=== PATIENT | male | born 1945 | race Hispanic/Latino ===

== ENCOUNTER 2019-02-25 12:24 | Emergency (ER) | payer OTHER, MEDICARE ==
[~2019-02-25 12:24] MED LIST: AEC81 PO; CHOL200074 PO; DEXL60CA3 PO; LISI30TA4 PO; PRAV20TA4 PO
[2019-02-25 13:25] LABS: BASOPHILS % (AUTO) 1.2 % (0.0-5.0); EOSINOPHILS % (AUTO) 1.5 % (0.0-8.0); HEMATOCRIT 43.3 % (42-54); LYMPHOCYTES % (AUTO) 20.1 % (21.0-51.0); MEAN CORPUSCULAR HEMOGLOBIN 32.2 pg (27.0-33.0); MEAN CORPUSCULAR HGB CONC 33.9 g/dL (32.0-36.0); MEAN CORPUSCULAR VOLUME 95.2 fL (79-99); MONOCYTES % (AUTO) 8.9 % (3.0-13.0); NEUTROPHILS % (AUTO) 68.3 % (40.0-77.0); PLATELET COUNT (AUTO) 189 K/uL (130-400); RED BLOOD CELL COUNT(AUTO) 4.55 MIL/uL (4.50-6.20); RED CELL DISTRIBUTION WIDTH 13.4 % (11.0-15.5); WHITE BLOOD COUNT (AUTO) 8.4 K/uL (4.8-10.8)
[2019-02-25 13:32] LABS: CREATININE 1.2 mg/dL (0.5-1.5); POTASSIUM 4.2 mmol/L (3.5-5.1)
[2019-02-25 13:35] LABS: INR 0.97 (0.85-1.15); PARTIAL THROMBOPLASTIN TIME 29.2 SEC (26.3-35.5); PROTHROMBIN TIME 10.2 SEC (9.6-11.6)
[2019-02-26] MEDS ORDERED: LISI40TA4 PO (10:00)
== END 2019-02-25 14:35 | disposition left against medical advice (07) ==
LOC: EDH 12:24
DX: I74.3 Embolism and thrombosis of arteries of the lower extremities (principal); I10 Essential (primary) hypertension; Z72.0 Tobacco use
CPT/HCPCS: 36415; 80048; 85025; 85610; 85730; 93005; 93925

== ENCOUNTER → 2019-04-22 | Outpatient (CLI) | payer OTHER, MEDICARE ==
[~2019-04-22] MED LIST changes: -CHOL200074 PO; -DEXL60CA3 PO; -LISI30TA4 PO; +LISI40TA4 PO; -PRAV20TA4 PO
== END | disposition home or self-care (01) ==
LOC: SHCH 07:51
PROVIDERS: ATTEND Internal Medicine Cardiovascular Disease
DX: I73.9 Peripheral vascular disease, unspecified (principal)
CPT/HCPCS: 93925

== ENCOUNTER 2019-08-12 08:18 | Emergency (ER) | payer OTHER, MEDICARE ==
[2019-08-12 08:38] LABS: BASOPHILS % (AUTO) 0.9 % (0.0-5.0); EOSINOPHILS % (AUTO) 1.2 % (0.0-8.0); HEMATOCRIT 42.5 % (42-54); LYMPHOCYTES % (AUTO) 25.6 % (21.0-51.0); MEAN CORPUSCULAR HEMOGLOBIN 30.3 pg (27.0-33.0); MEAN CORPUSCULAR HGB CONC 32.5 g/dL (32.0-36.0); MEAN CORPUSCULAR VOLUME 93.2 fL (79-99); MONOCYTES % (AUTO) 9.1 % (3.0-13.0); NEUTROPHILS % (AUTO) 62.3 % (40.0-77.0); PLATELET COUNT (AUTO) 203 K/uL (130-400); RED BLOOD CELL COUNT(AUTO) 4.56 MIL/uL (4.50-6.20); RED CELL DISTRIBUTION WIDTH 13.7 % (11.0-15.5); WHITE BLOOD COUNT (AUTO) 6.7 K/uL (4.8-10.8)
[2019-08-12 08:52] LABS: INR 1.02 (0.85-1.15); PARTIAL THROMBOPLASTIN TIME 26.7 SEC (26.3-35.5); PROTHROMBIN TIME 10.7 SEC (9.6-11.6)
[2019-08-12 09:33] LABS: B-TYPE NATRIURETIC PEPTIDE 8 pg/mL (0-100)
[2019-08-12 09:48] LABS: CREATININE 1.2 mg/dL (0.5-1.5); POTASSIUM 4.7 mmol/L (3.5-5.1)
[2019-08-12 09:53] LABS: BILIRUBIN,TOTAL 0.7 mg/dL (0.2-1.0); TOTAL PROTEIN, SERUM 7.7 g/dL (6.0-8.3)
[2019-08-12 10:35] LABS: APPEARANCE,URINE Clear (CLEAR); BILIRUBIN,URINE Negative (NEGATIVE); COLOR,URINE Yellow (YELLOW); GLUCOSE, URINE (UA) Negative (NEGATIVE); KETONES,URINE Negative (NEGATIVE); LEUKOCYTE ESTERASE ,URINE Negative (NEGATIVE); NITRATE,URINE Negative (NEGATIVE); OCCULT BLOOD,URINE Small (NEGATIVE); PH,URINE 5.5 (5.0-8.0); PROTEIN,URINE Negative (NEGATIVE); UROBILINOGEN,URINE 0.2 mg/dL (0.2-1.0)
[2019-08-12 10:55] LABS: BACTERIA,URINE Rare /HPF (None Seen); RBC,URINE 0-1 /HPF (0-1); SQUAMOUS EPITHELIAL CELL,UR Rare /HPF (0-2)
== END 2019-08-12 11:13 | disposition home or self-care (01) ==
LOC: EDH 08:18
DX: R55 Syncope and collapse (principal); I10 Essential (primary) hypertension; I82.409 Acute embolism and thrombosis of unspecified deep veins of unspecified lower extremity; Z98.890 Other specified postprocedural states; Z72.0 Tobacco use
CPT/HCPCS: 36415; 70450; 71045; 80053; 81001; 82550; 83880; 84484; 85025; 85610; 85730; 93005

== ENCOUNTER 2019-12-02 17:00 | Inpatient (IN) | payer OTHER, MEDICARE ==
[~2019-12-02] VITALS: Ht 165.1 cm; Wt 48.0 kg
[2019-12-02 17:26] LABS: BASOPHILS % (AUTO) 0.7 % (0.0-5.0); EOSINOPHILS % (AUTO) 1.3 % (0.0-8.0); HEMATOCRIT 38.3 % (42-54); LYMPHOCYTES % (AUTO) 22.3 % (21.0-51.0); MEAN CORPUSCULAR HEMOGLOBIN 31.1 pg (27.0-33.0); MEAN CORPUSCULAR HGB CONC 33.2 g/dL (32.0-36.0); MEAN CORPUSCULAR VOLUME 93.9 fL (79-99); MONOCYTES % (AUTO) 8.6 % (3.0-13.0); PLATELET COUNT (AUTO) 166 K/uL (130-400); RED BLOOD CELL COUNT(AUTO) 4.08 MIL/uL (4.50-6.20); RED CELL DISTRIBUTION WIDTH 13.9 % (11.0-15.5); WHITE BLOOD COUNT (AUTO) 9.4 K/uL (4.8-10.8)
[2019-12-02] MEDS ORDERED: ASPIRIN 81MG TAB.CHEW ONE (17:31)
[2019-12-02] MEDS ORDERED: HEPARIN SODIUM 5000UNIT/ML 1ML VIAL ONE (17:32)
[2019-12-02 17:36] LABS: CREATININE 1.3 mg/dL (0.5-1.5); POTASSIUM 4.6 mmol/L (3.5-5.1)
[2019-12-02 17:39] LABS: INR 0.96 (0.85-1.15); PARTIAL THROMBOPLASTIN TIME 26.3 SEC (26.3-35.5); PROTHROMBIN TIME 10.4 SEC (9.6-11.6)
[2019-12-02 17:41] LABS: ALBUMIN 3.6 g/dL (3.5-5.0); BILIRUBIN,TOTAL 0.2 mg/dL (0.2-1.0); TOTAL PROTEIN, SERUM 7.1 g/dL (6.0-8.3)
[2019-12-02] MEDS ORDERED: HEPARIN 25000 UNITS/250 ML D5W 250 ML IV ONE (17:41)
[2019-12-02 17:52] LABS: B-TYPE NATRIURETIC PEPTIDE 15 pg/mL (0-100)
[2019-12-02] MEDS ORDERED: NITROGLYCERIN 1GM/1 INCH PACKET TD ONE (19:25)
[2019-12-02 19:33] LABS: APPEARANCE,URINE Clear (CLEAR); BILIRUBIN,URINE Negative (NEGATIVE); COLOR,URINE Yellow (YELLOW); GLUCOSE, URINE (UA) Negative (NEGATIVE); KETONES,URINE Negative (NEGATIVE); LEUKOCYTE ESTERASE ,URINE Negative (NEGATIVE); NITRATE,URINE Negative (NEGATIVE); OCCULT BLOOD,URINE Small (NEGATIVE); PH,URINE 5.5 (5.0-8.0); PROTEIN,URINE Negative (NEGATIVE); UROBILINOGEN,URINE 0.2 mg/dL (0.2-1.0)
[2019-12-02 19:48] LABS: BACTERIA,URINE Few /HPF (None Seen); RBC,URINE None Seen /HPF (0-1)
[2019-12-02] MEDS ORDERED: HYDROMORPHONE 1 MG/1 ML AMP IVP PRN (20:30)
[2019-12-02 22:53] VITALS: BP 138/55
--- NOTE | 2019-12-02 22:55 | NUR ---
ADMISSION PT TRANSFERRED FORM ER INTO ROOM 307 VIA STRETCHER. AWAKE, ALERT AND VERBALLY RESPONSIVE, NO C/O PAIN OR DISCOMFORT AT THIS TIME. 20G PERIPHERAL IV CATHETER TO RIGHT AC INFUSING HEPARIN PER PROTOCOL, ORDER, DOSE, AND INFUSION RATE REVIEWED WITH BITA BLACKMON RN. NO BLEEDING OBSERVED AT THIS TIME. PT ORIENTED TO ROOM, CALL ARCEO WITHIN REACH, BED IN LOWEST POSITION. Addendum: 12/02/19 at 2335 by SALINAS CARBALLO RN Amended: Links added.
[2019-12-02 23:51] LABS: INR 0.99 (0.85-1.15); PROTHROMBIN TIME 10.7 SEC (9.6-11.6)
[2019-12-03] VITALS (12 sets, daily range): BP systolic 82–144; BP diastolic 51–84
[2019-12-03 00:13] LABS: PARTIAL THROMBOPLASTIN TIME 91.3 SEC (26.3-35.5)
[2019-12-03] MEDS: SODIUM CHLORIDE 0.9% 1000ML 1,000 ML IV SCH ×2 (00:22→16:34)
[2019-12-03 05:28] LABS: EOSINOPHILS % (AUTO) 2.2 % (0.0-8.0); HEMATOCRIT 36.9 % (42-54); LYMPHOCYTES % (AUTO) 24.7 % (21.0-51.0); MEAN CORPUSCULAR HEMOGLOBIN 31.5 pg (27.0-33.0); MEAN CORPUSCULAR HGB CONC 33.3 g/dL (32.0-36.0); MEAN CORPUSCULAR VOLUME 94.4 fL (79-99); NEUTROPHILS % (AUTO) 61.7 % (40.0-77.0); PLATELET COUNT (AUTO) 147 K/uL (130-400); RED BLOOD CELL COUNT(AUTO) 3.91 MIL/uL (4.50-6.20); WHITE BLOOD COUNT (AUTO) 9.3 K/uL (4.8-10.8)
[2019-12-03 05:49] LABS: INR 0.97 (0.85-1.15); PARTIAL THROMBOPLASTIN TIME 50.5 SEC (26.3-35.5); POTASSIUM 4.5 mmol/L (3.5-5.1); PROTHROMBIN TIME 10.5 SEC (9.6-11.6)
[2019-12-03] MEDS: ATORVASTATIN CALCIUM 40 MG TABLET PO SCH (09:18)
[2019-12-03] MEDS: ASPIRIN 81MG TAB.CHEW PO SCH (09:18)
--- NOTE | 2019-12-03 10:00 | NUR ---
DALTON Caruso, called states okay to feed pt 5minutes later he stated that there is a spot at [facility], he was told that patient did not eat but drank a cup coffee, he states okay they will pick him up later, and i will call to when to hold heparin.
--- NOTE | 2019-12-03 10:30 | NUR ---
[facility] by Whitney AGUILLON pt in no distress, aaox3.
[2019-12-03] MEDS ORDERED: HEPARIN SODIUM 1000UNIT/ML 10ML VIAL ONE (10:32)
[2019-12-03] MEDS ORDERED: NITROGLYCERIN 2 MG/VIAL VIAL IV ONE (10:32)
[2019-12-03] MEDS ORDERED: FENTANYL CITRATE PF 50 MCG/1 ML 2ML VIAL ONE (10:33)
[2019-12-03] MEDS ORDERED: MIDAZOLAM HCL 1 MG/ML 2ML VIAL ONE (10:33)
[2019-12-03] MEDS ORDERED: IODIXANOL 320 MG/ML 100 ML VIAL ONE (10:33)
[2019-12-03] MEDS ORDERED: LIDOCAINE HCL 2% 20ML ONE (10:33)
--- NOTE | 2019-12-03 11:06 | NUR ---
[facility] CM spoke to pt's brother Derick Akbar discussed dc plans. Pt is independent prior to admission, lives at home alone, brother lives close by. Denies any equipments/services. Feels safe to go back home, still drives occassionally, brother able to assist with transportation and needs as necessary. Pt goes to [facility] for meds. Dc plan to home once stable. CM to cont to follow up. Addendum: 12/03/19 at 1107 by TALON LION LVN CM Amended: Links added.
[2019-12-03] MEDS ORDERED: SODIUM CHLORIDE 0.9% 1000ML 1,000 ML IV SCH (12:51)
[2019-12-03] MEDS ORDERED: CLOPIDOGREL BISULFATE 300 MG TAB ONE (12:58)
[2019-12-03] MEDS ORDERED: HYDRALAZINE HCL 20 MG/ML VIAL IV PRN (13:00)
[2019-12-03] MEDS ORDERED: HYDRALAZINE HCL 20 MG/ML VIAL ONE (13:12)
--- NOTE | 2019-12-03 13:45 | NUR ---
received pt as transfer from refuse lab[facility]; bilaterial groins with sheat intact, no bruising, bleeding or edema noted; weak pedal pulse papable and grace. feet warm to touch; pt denies pain at this time, he is aaox3, i have oriented him to need to stay straight/flat till 7 pm this evening to prevent complications and he stated understanding. will cont to monitor.
[2019-12-03] MEDS ORDERED: ONDANSETRON HCL 4 MG/2 ML VIAL IVP PRN (16:00)
[2019-12-03] MEDS ORDERED: ONDANSETRON HCL 4 MG/2 ML VIAL ONE (16:05)
[2019-12-04 01:15] VITALS: BP 121/58
[2019-12-04 04:25] VITALS: BP 155/56
[2019-12-04 07:42] VITALS: BP 176/85
--- NOTE | 2019-12-04 08:00 | NUR ---
AM ASSESSMENT PT LAYING IN BED, HOB ELEVATED 30 DEGREES, WATCHING TV. A/O X 3. NO SOB. NO DISTRESS NOTED. DENIES CHEST PAIN OR DISCOMFORT. DENIES INCISIONAL PAIN. TELE: SR. DENIES N/V AND/OR DIARRHEA. BILATERAL GROIN DSG DRY & INTACT. NO BLEEDING, NO HEMATOMA NOTED. (+) BILATERAL WEAK PEDAL PULSES. BLE WARM TO TOUCH. UP W/ASSISTANCE. INSTRUCTED TO CALL FOR ASSISTANCE. CALL [facility] W/IN REACH.
[2019-12-04] MEDS: ATORVASTATIN CALCIUM 40 MG TABLET PO SCH (08:10)
[2019-12-04] MEDS: ASPIRIN 81MG TAB.CHEW PO SCH (08:12)
[2019-12-04] MEDS ORDERED: CLOPIDOGREL BISULFATE 75 MG TAB PO SCH (09:00)
[2019-12-04 11:43] VITALS: BP_SYST 119; BP_SYST 127; BP_DIAS 52; BP_DIAS 93
[2019-12-04 14:54] LABS: CREATININE 1.1 mg/dL (0.5-1.5); POTASSIUM 4.1 mmol/L (3.5-5.1)
[2019-12-04 15:37] VITALS: BP 125/63
[2019-12-04] MEDS ORDERED: LISINOPRIL 5 MG TABLET PO SCH (21:00)
== END 2019-12-04 17:40 | disposition home or self-care (01) | DRG 253 ==
LOC: EDH 17:00 → OBSVTOIN 20:00 → EDHIP 20:00 → 3BH 21:09 → 4BH 12-03 13:58 → 4AH 12-04 08:57 → 4BH 12-04 08:58
PROVIDERS: ADMIT Internal Medicine; ATTEND Internal Medicine
PROC: 047M35Z Dilation of Right Popliteal Artery with Two Drug-eluting Intraluminal Devices, Percutaneous Approach (ICD-10-PCS; principal; 2019-12-03)
PROC: B4101ZZ Fluoroscopy of Abdominal Aorta using Low Osmolar Contrast (ICD-10-PCS; 2019-12-03)
DX: I70.201 Unspecified atherosclerosis of native arteries of extremities, right leg (principal); R64 Cachexia; Z68.1 Body mass index [BMI] 19.9 or less, adult; E78.5 Hyperlipidemia, unspecified; F17.200 Nicotine dependence, unspecified, uncomplicated; I10 Essential (primary) hypertension; R91.1 Solitary pulmonary nodule; R00.1 Bradycardia, unspecified; Z68.20 Body mass index [BMI] 20.0-20.9, adult; Z98.61 Coronary angioplasty status; Z91.14 Patient's other noncompliance with medication regimen; Z82.49 Family history of ischemic heart disease and other diseases of the circulatory system
CPT/HCPCS: 36415; 37226; 71045; 71250; 73562; 75716; 75774; 80048; 80053; 81001; 82550; 83880; 84484; 85025; 85347; 85610; 85730; 93005; 93926; 93971; 96374; 99291; C1769; C1894; G0378; J0360; J1170; J1644; J2250; J2405; J3010; J3490; Q9967

== ENCOUNTER → 2020-03-12 | Outpatient (CLI) | payer OTHER, MEDICARE | END | disposition home or self-care (01) | LOC: SHCH 15:04 | PROVIDERS: ATTEND Internal Medicine Cardiovascular Disease | DX: I73.9 Peripheral vascular disease, unspecified (principal) | CPT/HCPCS: 93926 ==

== ENCOUNTER → 2020-09-15 | Outpatient (CLI) | payer OTHER, MEDICARE ==
[~2020-09-15] MED LIST changes: +IOHEXOL 350 MG/ML 100ML INFUS..BTL IV ONE; +IOHEXOL-350 50ML VIAL IV ONE
== END | disposition home or self-care (01) ==
LOC: RAH 08:28
PROVIDERS: ATTEND Internal Medicine Cardiovascular Disease
DX: I71.4 Abdominal aortic aneurysm, without rupture (principal); R55 Syncope and collapse; I72.4 Aneurysm of artery of lower extremity; N40.0 Benign prostatic hyperplasia without lower urinary tract symptoms; I70.1 Atherosclerosis of renal artery
CPT/HCPCS: 75635; Q9967 ×2